=== PATIENT | female | born 1970 | race Caucasian/White ===

== ENCOUNTER → 2020-11-14 | Outpatient (CLI) | payer MEDICAID ==
--- NOTE | 2020-11-14 15:02 | Diagnostic Imaging Report ---
INDICATION: [id number] lung carcinoma with subsequent restaging and assess for treatment response. TECHNIQUE: Serum blood glucose level at the time of injection is 123 mg/dL. Patient was administered 14.8 mCi F-18 FDG intravenously in the left antecubital location and PET imaging was performed from the top of the skull to mid thighs. Noncontrast CT was also performed for attenuation correction and anatomic correlation. COMPARISON: No prior imaging is available for comparison. FINDINGS: Imaging through the brain does show a questionable hypermetabolic focus in the right posterior frontal lobe. Intracranial mass is suspected. No other hypermetabolic foci are identified. There is a large spiculated mass in the right upper lobe which shows intense hypermetabolism. Mass measures nearly 5 cm in size and demonstrates SUV max of 34. Just inferior and medial to this is a right hilar mass measuring approximately 3 cm in size and demonstrating an SUV max of 32. Surrounding infiltrate is noted suggestive of postobstructive pneumonitis. The left hilum is unremarkable. Imaging through the abdomen and pelvis does show a hypermetabolic mass in the region of the pancreatic head measuring 2.3 cm and SUV max of 47. There is some low-level activity throughout the pancreas body and tail. There appear to be some mild surrounding inflammatory changes and the possibility of underlying pancreatitis is suggested. No other hypermetabolic foci in the abdomen or pelvis are seen. IMPRESSION: 1. Small hypermetabolic focus in the posterior right frontal lobe, suspicious for intracranial mass. MRI of the brain with and without contrast is recommended for further evaluation. 2. Hypermetabolic right upper lobe and right hilar mass, consistent with patient's known lung neoplasm. There appears to be some postobstructive pneumonitis present. 3. Hypermetabolic mass in the region of the pancreatic head. Pancreatic neoplasm is suggested. There is some generalized uptake throughout the pancreatic body and tail with mild peripancreatic inflammatory stranding, suggestive of underlying pancreatitis. Dedicated CT abdomen and pelvis with and without IV contrast would be useful for better characterization. 4. No other suspicious hypermetabolic foci are identified. Dictated by: Dictated on workstation # [id number]
== END ==
LOC: RAD 09:00
PROVIDERS: ATTEND Internal Medicine Hematology & Oncology
DX: C34.90 Malignant neoplasm of unspecified part of unspecified bronchus or lung (principal); K86.89 Other specified diseases of pancreas